=== PATIENT | female | born 1950 | race Caucasian/White ===

== ENCOUNTER → 2016-07-22 | Outpatient (CLI) | payer MEDICARE, OTHER ==
[~2016-07-22] MED LIST: ESTR0.5T PO; ESTR1TAB24 PO; FEXO180T84 PO; GLUC500C2 PO; GLUCOSAMINE PO; MTP25TSR PO; MULT1CAP27 PO; PRED10TA22 PO
--- OUTSIDE RECORDS SUMMARY | 2016-07-22 13:58 | XMS REPORT | Continuity of Care Document ---
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 No 12/07/15 8:07am Organ Donor Yes 12/07/15 8:07am Resuscitation Status Full Code 12/07/15 8:07am Problems Active Problems Medical Problem Onset Date Status Angioedema Unknown Acute Medications Current Home Medications Medication Dose Units Route Directions Days/Qty Instructions Start Date Estradiol 1 Mg 1 Mg Oral Daily 11/05/15 Past Home Medications Medication Directions Ordered Status Estradiol 0.5 Mg Tablet, 0.5 Mg Oral Daily 11/29/09 Discontinued Multivitamins 1 Each Capsule, 1 Each Oral Daily 11/29/09 Discontinued [Glucosamine] , 1 Tab Oral Daily 08/11/11 Discontinued Estradiol 1 Mg Tablet, 1 Mg Oral Daily 08/11/11 Discontinued Glucosamine Sulfate 500 Mg Capsule, 500 Mg Oral Daily 08/11/11 Discontinued Metoprolol Succinate 25 Mg Tab.sr.24h, 25 Mg Oral Daily 08/12/11 Discontinued Prednisone 10 Mg Tab.ds.pk, 10 Mg Oral Daily 11/05/15 Discontinued Fexofenadine Hcl 180 Mg Tablet, 180 Mg Oral Daily 11/05/15 Discontinued Social History Social History Problem Response Recorded Date/Time Alcohol Use Occasionally Uses 11/05/2015 4:00am Recreational Drug Use No 11/05/2015 4:00am Recent Foreign Travel No 12/07/2015 8:13am Recent Infectious Disease Exposure No 12/07/2015 8:13am Smoking Status Never a Smoker 12/07/2015 8:10am Query Response Start Date Stop Date Smoking Status Never a Smoker Hospital Discharge Instructions No hospital discharge instructions. Plan of Care Discharge Date 12/07/15 10:45am Instructions/Education Provided COLONOSCOPY Colonoscopy (DC) Prescriptions See Medication Section Functional Status No functional status results. Allergies, Adverse Reactions, Alerts No known allergies. Immunizations No immunization records. Vital Signs Acute Vital Signs Vital Response Date/Time Temperature (Fahrenheit) 97.2 degrees F (97.6 - 99.5) 12/07/2015 10:45am Temperature (Calculated Celsius) 36.25344 degrees C (36.4 - 37.5) 12/07/2015 10:45am Temperature Source Tympanic 12/07/2015 10:45am Pulse Rate (adult) 62 bpm (60 - 90) 12/07/2015 10:45am Respiratory Rate 18 bpm (12 - 24) 12/07/2015 10:45am O2 Sat by Pulse Oximetry 97 % (88 - 100) 12/07/2015 10:45am Blood Pressure 153/75 mm Hg 12/07/2015 10:45am Pain Numeric Pain Scale 0-No Pain 12/07/2015 10:45am Pain Intensity 3 12/07/2015 9:55am Height (Feet) 5 feet 12/07/2015 8:14am Height (Inches) 6.00 inches 12/07/2015 8:14am Height (Calculated Centimeters) 167.365387 cm 12/07/2015 8:14am Weight (Pounds) 211 pounds 12/07/2015 8:14am Weight (Ounces) 0.0 oz 12/07/2015 8:14am Weight (Calculated Grams) 99904.991 gm 12/07/2015 8:14am Weight (Calculated Kilograms) 95.505370 kilograms 12/07/2015 8:14am Calculated BMI 34.1 12/07/2015 8:14am Results No known relevant diagnostic tests, laboratory data and/or discharge summary. Procedures Procedure Status Date Provider(s) Diagnostic colonoscopy Completed 12/07/15 ISAAK MEDINA MD Encounters Encounter Location Arrival/Admit Date Discharge/Depart Date Attending Provider Departed [facility] 12/07/15 7:40am 10:45am ISAAK MEDINA MD Departed Clinic [facility] 11/27/15 5:42am 11/27/15 10: 39am ISAAK MEDINA MD
--- NOTE | 2016-07-22 18:28 | Diagnostic Imaging Report ---
Digital mammogram bilateral screening. This study was compared to the prior exams of 04/21/2014, 02/18/2012, and 02/28/2010. At this time, there are no current complaints. The current study was also evaluated with a Computer Aided Detection (CAD) system. FINDINGS: There are scattered fibroglandular densities in both breasts which could obscure a lesion. Overall, there does not appear to have been any significant change when compared to the prior exam. No primary or secondary sign of malignancy is noted. IMPRESSION: There is no radiographic evidence for malignancy. ACR BI-RADS Category 2: Benign findings. Result letter will be mailed to the patient. Note: At least 10% of breast cancer is not imaged by mammography. Dictated by: Dictated on workstation # [id number]
== END ==
LOC: RAD 13:53
PROVIDERS: ATTEND Nurse Practitioner
DX: Z12.31 Encounter for screening mammogram for malignant neoplasm of breast (principal)
CPT/HCPCS: 77067

== ENCOUNTER 2017-06-15 08:51 | Emergency (ER) | payer MEDICARE, OTHER ==
[~2017-06-15] VITALS: Ht 167.6 cm; Wt 90.7 kg
--- OUTSIDE RECORDS SUMMARY | 2017-06-15 08:56 | XMS REPORT | Continuity of Care Document ---
Author Author [facility] Organization [facility] Address Unknown Phone Unavailable Allergies Active Description Code Type Severity Reaction Onset Reported/Identified Relationship to Patient Clinical Status Yes No Known Drug Allergies [id number] Drug Allergy Unknown N/A 11/29/2009 Medications There is no data. Problems Date Dx Coded Attending Type Code Diagnosis Diagnosed By 12/06/2009 Ot 618.01 12/06/2009 Ot 618.04 12/06/2009 Ot 788.41 08/12/2011 Ot 427.69 PREMATURE BEATS NEC 08/12/2011 Ot 729.5 PAIN IN LIMB 08/12/2011 Ot 786.50 CHEST PAIN NOS 08/12/2011 Ot 790.21 IMPAIRED FASTING GLUCOSE 08/12/2011 Ot 796.2 ELEV BL PRES W/O HYPERTN 08/12/2011 Ot V17.3 FAM HX- ISCHEM HEART DIS 08/12/2011 Ot V17.49 FAMILY HISTORY OF OTHER CARDIOVASCULAR D 08/12/2011 Ot V85.31 BODY MASS INDEX 31.0-31.9, ADULT 05/18/2014 JANETTE HALE Ot V76.12 08/25/2014 Ot 618.01 08/25/2014 Ot 618.04 08/25/2014 Ot 618.6 08/25/2014 Ot 791.9 08/25/2014 Ot V72.63 08/25/2014 Ot V74.8 11/05/2015 CAROL TATE, ISAAK Butler Ot T78.3XXA ANGIONEUROTIC EDEMA, INITIAL ENCOUNTER 11/27/2015 CAROL TATE, ISAAK Butler Ot Z01.818 ENCOUNTER FOR OTHER PREPROCEDURAL EXAMIN 11/28/2015 ISAAK MEDINA MD Ot Z01.818 ENCOUNTER FOR OTHER PREPROCEDURAL EXAMIN 12/07/2015 ISAAK MEDINA MD Ot Z12.11 ENCOUNTER FOR SCREENING FOR MALIGNANT NE 07/22/2016 Ot V76.12 OT SCREEN MAMMO-MALIGN NEOPLASM OF DIANE 07/22/2016 REZA TATE, JACOBO Adkins Ot 715.31 LOC OSTEOARTH NOS-SHLDER 07/22/2016 REZA TATE, JACOBO Adkins Ot 715.36 LOC OSTEOARTH NOS-L/LEG 07/22/2016 REZA TATE, JACOBO Adkins Ot 717.3 DERANG MED MENISCUS NEC 07/22/2016 REZA TATE, JACOBO Adkins Ot 719.06 JOINT EFFUSION-L/LEG 07/22/2016 REZA TATE, JACOBO Adkins Ot 727.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 07/22/2016 REZA TATE, JACOBO Adkins Ot 727.61 ROTATOR CUFF RUPTURE 07/22/2016 REZA TATE, JACOBO Adkins Ot 738.9 ACQ DEFORMITY NOS 07/22/2016 JACOBO COBB MD Ot 793.7 NOSP (ABN) FINDINGS ON RADIOLOGICAL OT 07/22/2016 JACOBO COBB MD Ot 840.9 SPRAIN SHOULDER/ARM NOS 07/22/2016 JACOBO COBB MD Ot E928.9 ACCIDENT NOS 07/22/2016 JANETTE HALE Ot V76.12 OTH SCREEN MAMMO-MALIGN NEOPLASM OF DIANE 07/23/2016 JANETTE HALE Ot Z12.31 ENCNTR SCREEN MAMMOGRAM FOR MALIGNANT NE 07/23/2016 JANETTE HALE Ot Z12.31 ENCNTR SCREEN MAMMOGRAM FOR MALIGNANT NE 08/12/2016 JANETTE HALE Ot Z12.31 ENCNTR SCREEN MAMMOGRAM FOR MALIGNANT NE Procedures There is no data. Results There is no data. Encounters ACCT No. Visit Date/Time Discharge Status Pt. Type Provider Facility Loc./Unit Complaint [id number] 07/22/2016 13:53:00 07/22/2016 23:59:59 CLS Outpatient JANETTE HALE [facility] RAD SCREENING [id number] 01/04/2016 10:28:00 01/04/2016 23:59:59 CLS Outpatient GHASSAN FERREIRA APRN [facility] QUICK [id number] 12/07/2015 07:40:00 12/07/2015 10:45:00 DIS Outpatient CAROL TATE, ISAAK Butler [facility] SDC SCREENING [id number] 11/27/2015 05:42:00 11/27/2015 10:39:00 DIS Outpatient ISAAK MEDINA MD [facility] PREOP SCREENING [id number] 11/05/2015 03:19:00 11/05/2015 14:10:00 DIS Inpatient ISAAK MEDINA MD [facility] ICU ACUTE ANGIOEDEMA OF TONGUE [id number] 04/21/2014 10:24:00 04/21/2014 23:59:59 CLS Outpatient JANETTE HALE [facility] RAD ROUTINE [id number] 09/23/2013 11:07:00 09/23/2013 23:59:59 CLS Outpatient JACOBO COBB MD [facility] RAD ROTATOR CUFF TEAR, MMT [id number] 02/18/2012 13:26:00 Document Registration [id number] 08/11/2011 10:45:00 Document Registration [id number] 12/04/2009 05:51:00 Document Registration [id number] 11/29/2009 08:11:00 Document Registration
[2017-06-15] MEDS ORDERED: LACTATED RINGERS 1,000 ML IV ONE (09:17)
--- NOTE | 2017-06-15 09:25 | ED Respiratory ---
General Chief Complaint: Abdominal/GI Problems Stated Complaint: N/V/D Nursing Triage Note: PATIENT STATES THAT SHE STARTED HAVING A HEADACHE LAST THURSDAY. SHE SPENT THE REST OF THE WEEK HOME FROM WORK AND OVER THE WEEKEND SHE BEGAN HAVING BODY ACHES, NAUSEA, VOMITING AND DIARRHEA. SHE HAS NOT EATEN IN A FEW DAYS AND IS ONLY DRINKING A LITTLE BIT OF ORANGE JUICE. SHE IS NOT ABLE TO KEEP ANY FOOD DOWN. Source: patient, spouse Exam Limitations: no limitations History of Present Illness Time seen by provider: 09:12 Initial Comments Patient presents to ER by private conveyance with her spouse and a chief complaint that for the past 5 days she's been having a cough a little bit of nasal congestion and running malaise, body aches, tiredness and staying in bed for the past week. Yesterday and today she started having some loose stools and nausea and vomiting. Her says that everybody at his shop is also been expressing the exact same illness but none of them with anywhere near as severe symptoms. She's denies having any fevers or chills but she has had some sweats at night. She did not get her flu vaccine this year. She denies any skin rash or anatomical/structural lung disease, COPD or asthma. She denies diabetes. Patient states she's used Tylenol with minimal relief and Pepto-Bismol. Allergies and Home Medications Allergies Coded Allergies: No Known Drug Allergies (Unverified , 11/29/09) Home Medications Estradiol 1 Mg Tablet, 1 MG PO DAILY, (Reported) Constitutional: No chills, diaphoresis, dizziness, No fever, malaise, weakness EENTM: no symptoms reported, No ear discharge Respiratory: cough, No phlegm, short of breath, No stridor, No wheezing Gastrointestinal: abdominal pain (left flank on coughing), No constipation, diarrhea (loose stools), nausea, vomiting Genitourinary: No discharge, No dysuria, No frequency, No hematuria Musculoskeletal: No back pain Skin: No pruritus, No rash Psychiatric/Neurological: Denies Headache, Denies Numbness, Denies Paresthesia Past Wjomlzq-Nesfua-Xbdlxt Hx Patient Social History Alcohol Use: Occasionally Uses Alcohol Beverage of Choice: Wine (none recently) Recreational Drug Use: No Smoking Status: Never a Smoker 2nd Hand Smoke Exposure: No Recent Foreign Travel: No Contact w/Someone Who Travel: No Recent Infectious Disease Expo: No Surgeries Surgeries: Bladder Surgery, Hysterectomy Respiratory Currently Using CPAP: No Currently Using BIPAP: No Reproductive System Hx Reproductive Disorders: Yes (CYSTOCELE, RECTOCELE) Family Medical History Family Medial History: Diabetes mellitus 19 FATHER FH: CHF (congestive heart failure) 19 FATHER FH: cancer 19 FATHER 19 MOTHER Physical Exam Vital Signs Vital Sign - Last 12Hours 06/15/17 08:56 Temp 96.8 Pulse 53 Resp 18 B/P (MAP) 167/93 (117) Pulse Ox 98 O2 Delivery Room Air Capillary Refill : Less Than 3 Seconds General Appearance: WD/WN, mild distress Eyes: Bilateral Eye Normal Inspection, Bilateral Eye PERRL, Bilateral Eye EOMI HEENT: PERRL/EOMI, TMs normal, other (oropharynx mucosa is dry with black staining of the tongue likely from Pepto-Bismol) Neck: non-tender, supple, normal inspection Respiratory: chest non-tender, lungs clear, normal breath sounds, no respiratory distress, no accessory muscle use Cardiovascular: normal peripheral pulses, regular rate, rhythm, no edema Gastrointestinal: normal bowel sounds, non tender, soft, no organomegaly Extremities: non-tender, normal capillary refill Neurologic/Psychiatric: alert, oriented x 3 Skin: normal color, warm/dry Progress/Results/Core Measures Suspected Sepsis Recent Fever Within 48 Hours: No Infection Criteria Present: Suspected New Infection New/Unexplained Altered Menta: No Sepsis Screen: No Definite Risk Sepsis Diagnosis: SIRS Temperature:96.8 Pulse: 53 Respiratory Rate: 18 Laboratory Tests 06/15/17 09:26: White Blood Count 2.3L Blood Pressure 167 /93 Mean: 117 Laboratory Tests 06/15/17 09:26: Creatinine 0.77, Platelet Count 181, Total Bilirubin 0.4 Results/Orders Lab Results Laboratory Tests Test 06/15/17 09:26 Range/Units White Blood Count 2.3 L 4.3-11.0 10^3/uL Red Blood Count 5.13 4.35-5.85 10^6/uL Hemoglobin 14.9 11.5-16.0 G/DL Hematocrit 45 35-52 % Mean Corpuscular Volume 88 80-99 FL Mean Corpuscular Hemoglobin 29 25-34 PG Mean Corpuscular Hemoglobin Concent 33 32-36 G/DL Red Cell Distribution Width 13.4 10.0-14.5 % Platelet Count 181 130-400 10^3/uL Mean Platelet Volume 11.0 H 7.4-10.4 FL Neutrophils (%) (Auto) 52 42-75 % Lymphocytes (%) (Auto) 37 12-44 % Monocytes (%) (Auto) 10 0-12 % Eosinophils (%) (Auto) 0 0-10 % Basophils (%) (Auto) 1 0-10 % Neutrophils # (Auto) 1.2 L 1.8-7.8 X 10^3 Lymphocytes # (Auto) 0.9 L 1.0-4.0 X 10^3 Monocytes # (Auto) 0.2 0.0-1.0 X 10^3 Eosinophils # (Auto) 0.0 0.0-0.3 10^3/uL Basophils # (Auto) 0.0 0.0-0.1 10^3/uL Sodium Level 137 135-145 MMOL/L Potassium Level 3.7 3.6-5.0 MMOL/L Chloride Level 103 98-107 MMOL/L Carbon Dioxide Level 22 21-32 MMOL/L Anion Gap 12 5-14 MMOL/L Blood Urea Nitrogen 14 7-18 MG/DL Creatinine 0.77 0.60-1.30 MG/DL Estimat Glomerular Filtration Rate > 60 BUN/Creatinine Ratio 18 Glucose Level 136 H 70-105 MG/DL Calcium Level 8.6 8.5-10.1 MG/DL Magnesium Level 2.2 1.8-2.4 MG/DL Total Bilirubin 0.4 0.1-1.0 MG/DL Aspartate Amino Transf (AST/SGOT) 49 H 5-34 U/L Alanine Aminotransferase (ALT/SGPT) 43 0-55 U/L Alkaline Phosphatase 86 40-136 U/L C-Reactive Protein High Sensitivity 1.04 H 0.00-0.50 MG/DL Total Protein 7.5 6.4-8.2 GM/DL Albumin 3.8 3.2-4.5 GM/DL Micro Results Microbiology 06/15/17 Influenza Types A,B Antigen ([facility]) - Final, Complete My Orders Orders - SHOSHANA PUENTE Cbc With Automated Diff (06/15/17 09:17) Comprehensive Metabolic Panel (06/15/17 09:17) Hs C Reactive Protein (06/15/17 09:17) Magnesium (06/15/17 09:17) Influenza A And B Antigens (06/15/17 09:17) Chest Pa/Lat (2 View) (06/15/17 09:17) Saline Lock/Iv-Start (06/15/17 09:17) Lactated Ringers (Lr 1000 Ml Iv Solution (06/15/17 09:17) Ondansetron Injection (Zofran Injectio (06/15/17 09:30) Ketorolac Injection (Toradol Injection) (06/15/17 09:30) Medications Given in ED Current Medications Medications Dose Ordered Sig/Mahamed Route Start Time Stop Time Status Last Admin Dose Admin Ketorolac Tromethamine 15 mg ONCE ONCE IVP 06/15/17 09:30 06/15/17 09:31 DC 06/15/17 09:35 15 MG Lactated Ringer's 1,000 ml @ 0 mls/hr Q0M ONCE IV 06/15/17 09:17 06/15/17 09:20 DC 06/15/17 09:35 0 MLS/HR Ondansetron HCl 4 mg ONCE ONCE IVP 06/15/17 09:30 06/15/17 09:31 DC 06/15/17 09:34 4 MG Vital Signs/I&O Vital Sign - Last 12Hours 06/15/17 08:56 Temp 96.8 Pulse 53 Resp 18 B/P (MAP) 167/93 (117) Pulse Ox 98 O2 Delivery Room Air Capillary Refill : Less Than 3 Seconds Blood Pressure Mean: 117 Progress Note : Time: 09:25 Progress Note Influenza versus viral upper respiratory tract infection versus bronchitis versus pneumonia. We'll get basic labs and chest x-ray. We'll give her some nausea medicine and a liter fluids to start. Diagnostic Imaging Diagonstic Imaging: Xray Plain Films/CT/US/NM/MRI: chest (2v) Comments NAME: ADEBAYO MARIN [facility] REC#: [id number] PT STATUS: REG ER : 1950 PHYSICIAN: SHOSHANA PUENTE MD ADMIT DATE: 06/15/17/ER Draft Date of Exam:06/15/17 CHEST PA/LAT (2 VIEW) EXAMINATION: PA and lateral chest at 1106 hours. INDICATION: Cough. FINDINGS: The heart size is within normal limits and stable when compared to 08/11/2011. The coarse perihilar markings seen on the prior study are again evident and no different. The lungs remain clear. There is still no sign of failure, pneumonia, or pleural effusion to suggest an acute abnormality. The mediastinum is not widened. The osseous structures are intact. As noted on the prior exam, there is deformity of the left clavicle due to prior trauma. Also, in the interval since the prior exam, the patient has undergone a surgical procedure and there is now an orthopedic fixation screw overlying the right humeral head. IMPRESSION: There is no evidence for an acute cardiopulmonary abnormality. Dictated on workstation # [id number] Dict: 06/15/17 1052 Trans: 06/15/17 1059 [id number] Interpreted by: EVE MOY MD Electronically signed by: Reviewed: Reviewed by Me Departure Impression Impression: Primary Impression: Upper respiratory infection, viral Additional Impression: Gastroenteritis and colitis, viral Disposition: HOME, SELF-CARE Condition: Improved Departure-Patient Inst. Decision time for Depature: 11:29 Referrals: ISAAK MEDINA MD (PCP/Family) Primary Care Physician Patient Instructions: Viral Gastroenteritis, Adult (DC) Add. Discharge Instructions: Drink plenty of fluids and use the Zofran 1 tablet every 6 hours as needed to control your nausea. Use Tylenol 1000 mg every 8 hours and ibuprofen 800 mg every 8 hours as needed for body aches, fevers, chills, headaches. Use vaporizer such as Vicks or Mentholatum and middle fires. Get some rest drink lots of fluids and if you have diarrhea eat a bland diet of bananas, rice, applesauce, toast and other high-fiber foods. If you're not improving by or Thursday follow-up with her primary care physician. All discharge instructions reviewed with patient and/or family. Voiced understanding. Scripts Ondansetron (Ondansetron Odt) 4 Mg Tab.rapdis 4 MG PO Q6H Y for NAUSEA/VOMITING-1ST LINE, #14 TAB 0 Refills Prov: SHOSHANA PUENTE Lexy 06/15/17 Work/School Note: Work Release Form Date Seen in the Emergency Department: Jun 15, 2017 Return to Work: Jun 18, 2017 Restrictions: No Restrictions Copy Copies To 1: ISAAK MEDINA MD, TITUS J Jun 15, 2017 09:25
[2017-06-15] MEDS ORDERED: KETOROLAC 30 MG/ML VIAL IVP ONE (09:30)
[2017-06-15] MEDS ORDERED: ONDANSETRON 4 MG/2 ML (SDV) Z0FRAN IVP ONE (09:30)
[2017-06-15 09:34] LABS: BASOPHILS % (AUTO) 1 % (0-10); EOSINOPHILS % (AUTO) 0 % (0-10); HEMATOCRIT 45 % (35-52); HEMOGLOBIN 14.9 G/DL (11.5-16.0); LYMPHOCYTES # (AUTO) 0.9 X 10^3 (1.0-4.0); LYMPHOCYTES % (AUTO) 37 % (12-44); MEAN CORPUSCULAR HEMOGLOBIN 29 PG (25-34); MEAN CORPUSCULAR HGB CONC 33 G/DL (32-36); MEAN CORPUSCULAR VOLUME 88 FL (80-99); MONOCYTES # (AUTO) 0.2 X 10^3 (0.0-1.0); MONOCYTES % (AUTO) 10 % (0-12); NEUTROPHILS # (AUTO) 1.2 X 10^3 (1.8-7.8); NEUTROPHILS % (AUTO) 52 % (42-75); PLATELET COUNT 181 10^3/uL (130-400); RED BLOOD COUNT 5.13 10^6/uL (4.35-5.85); RED CELL DISTRIBUTION WIDTH 13.4 % (10.0-14.5); WHITE BLOOD COUNT 2.3 10^3/uL (4.3-11.0)
[2017-06-15 10:06] LABS: ALANINE AMINOTRANSFERASE 43 U/L (0-55); ALBUMIN 3.8 GM/DL (3.2-4.5); ALKALINE PHOSPHATASE 86 U/L (40-136); BILIRUBIN,TOTAL 0.4 MG/DL (0.1-1.0); BUN/CREATININE RATIO 18; CALCIUM 8.6 MG/DL (8.5-10.1); CARBON DIOXIDE 22 MMOL/L (21-32); CHLORIDE 103 MMOL/L (98-107); CREATININE SERUM 0.77 MG/DL (0.60-1.30); GFR ESTIMATED > 60; GLUCOSE 136 MG/DL (70-105); MAGNESIUM 2.2 MG/DL (1.8-2.4); POTASSIUM 3.7 MMOL/L (3.6-5.0); SODIUM 137 MMOL/L (135-145); TOTAL PROTEIN 7.5 GM/DL (6.4-8.2)
--- NOTE | 2017-06-15 10:59 | Diagnostic Imaging Report ---
EXAMINATION: PA and lateral chest at 1106 hours. INDICATION: Cough. FINDINGS: The heart size is within normal limits and stable when compared to 08/11/2011. The coarse perihilar markings seen on the prior study are again evident and no different. The lungs remain clear. There is still no sign of failure, pneumonia, or pleural effusion to suggest an acute abnormality. The mediastinum is not widened. The osseous structures are intact. As noted on the prior exam, there is deformity of the left clavicle due to prior trauma. Also, in the interval since the prior exam, the patient has undergone a surgical procedure and there is now an orthopedic fixation screw overlying the right humeral head. IMPRESSION: There is no evidence for an acute cardiopulmonary abnormality. Dictated by: Dictated on workstation # [id number]
[2017-06-15] MEDS ORDERED: ONDA4TAB11 PO (11:32)
[2017-06-15 11:37] VITALS: BP 167/93
== END 2017-06-15 11:10 | disposition home or self-care (01) ==
LOC: EDUNIT# 08:51 → ER 08:52
DX: J06.9 Acute upper respiratory infection, unspecified (principal); A08.4 Viral intestinal infection, unspecified; Z90.710 Acquired absence of both cervix and uterus; Z82.49 Family history of ischemic heart disease and other diseases of the circulatory system
CPT/HCPCS: 36415; 71046; 80053; 83735; 85025; 86141; 87804; 96361; 96374; 96375

== ENCOUNTER → 2018-03-30 | Outpatient (CLI) | payer MEDICARE, OTHER ==
[~2018-03-30] MED LIST changes: +ONDA4TAB11 PO
--- NOTE | 2018-03-30 12:47 | Diagnostic Imaging Report ---
INDICATION: Routine screening. COMPARISON: 07/22/2016 and 04/21/2014. TECHNIQUE: 2D and 3D bilateral screening mammography was performed with CAD. FINDINGS: Scattered fibroglandular densities are identified bilaterally. The parenchymal pattern appears stable. Intraparenchymal lymph nodes in the upper and outer aspects of both breasts appear stable. No new mass or malignant appearing microcalcifications are seen. The axillae are unremarkable. IMPRESSION: No mammographic features suspicious for malignancy are identified. ACR BI-RADS Category 2: Benign findings. Result letter will be mailed to the patient. Note: At least 10% of breast cancer is not imaged by mammography. Dictated by: Dictated on workstation # [id number]
== END ==
LOC: RAD 08:33
PROVIDERS: ATTEND Internal Medicine
DX: Z12.31 Encounter for screening mammogram for malignant neoplasm of breast (principal)
CPT/HCPCS: 77067

== ENCOUNTER → 2019-04-05 | Outpatient (CLI) | payer MEDICARE, OTHER ==
--- NOTE | 2019-04-05 12:02 | Diagnostic Imaging Report ---
INDICATION: Screening TECHNIQUE: The current study was also evaluated with a Computer Aided Detection (CAD) system. 3D Tomographic imaging was also performed. 3D tomosynthesis was performed and reviewed. INDICATION: Screening. COMPARISON: 03/30/2018, 07/23/2016, and 04/21/2014. FINDINGS: There are scattered fibroglandular densities bilaterally. There are a few benign type calcifications. There is no dominant mass, spiculated lesion, or suspicious calcification identified. The skin, nipples, and axillae are unremarkable. IMPRESSION: Benign findings. ACR BI-RADS Category 2: Benign findings. Result letter will be mailed to the patient. Note: At least 10% of breast cancer is not imaged by mammography. Dictated by: Dictated on workstation # [id number]
== END ==
LOC: RAD 11:18
PROVIDERS: ATTEND Internal Medicine
DX: Z12.31 Encounter for screening mammogram for malignant neoplasm of breast (principal)
CPT/HCPCS: 77067

== ENCOUNTER → 2019-11-02 | Outpatient (CLI) | payer MEDICARE, OTHER ==
--- NOTE | 2019-11-02 18:09 | Diagnostic Imaging Report ---
EXAMINATION: Left lower extremity MRI from 11/02/2019. TECHNIQUE: Multiplanar, multisequence non contrast-enhanced MRI of the left lower extremity was accomplished. INDICATION: Patient fell in September, injury to the leg. FINDINGS: There is edema throughout the posterior lateral tibial plateau with focal edema noted within the mid aspect of the lateral femoral condyle as well. Bone bruise pattern is consistent with a recent ACL injury. The remaining osseous structures demonstrate no acute abnormalities. The ACL is diffusely ill-defined and contains edema. There is at least a partial tear along its proximal fibers. Complete discontinuity is not appreciated. The PCL is intact. The proximal MCL demonstrates diffuse heterogeneity and is ill-defined with associated edema suggesting at least a type III sprain or partial tear. No retraction. This is most marked along the deep fibers. The lateral collateral ligament proper demonstrates mild edema as well but without discontinuity. The iliotibial band and biceps femoris tendon appear intact. Edema surrounding the lateral collateral ligament complex is likely reactive. There is mild edema within the fibular head which could be contusion. The popliteus tendon is intact. The lateral meniscus intact. The medial meniscus contains some heterogeneous signal within the posterior horn consistent with myxoid degeneration. Heterogeneity of the soft tissues immediately posterior to the posterior horn could be due to a tear at the meniscocapsular junction. There is heterogeneity and loss of cartilage in the medial and lateral joint spaces moderate in nature. The patellofemoral joint space demonstrates moderate thinning and irregularity of its overlying cartilage is well. There is a small joint effusion. IMPRESSION: 1. Partial tear suspected within the proximal ACL with secondary bone bruise pattern as above 2. At least a type III sprain or tear or partial tear of the proximal MCL. 3. Sprain of the proximal lateral collateral ligament proper with surrounding edema. 4. Suspected meniscal capsular separation posterior medial knee. Lateral meniscus intact. 5. Tricompartmental degenerative disease and other findings as above. Dictated by: Dictated on workstation # [id number]
== END ==
LOC: RAD 14:28
PROVIDERS: ATTEND Orthopaedic Surgery
DX: M23.232 Derangement of other medial meniscus due to old tear or injury, left knee (principal); S83.422A Sprain of lateral collateral ligament of left knee, initial encounter; M17.12 Unilateral primary osteoarthritis, left knee
CPT/HCPCS: 73721

== ENCOUNTER → 2020-09-10 | Outpatient (CLI) | payer MEDICARE, OTHER ==
--- NOTE | 2020-09-10 12:46 | Diagnostic Imaging Report ---
HISTORY: Cough, new onset fatigue. COMPARISON: 06/15/2017. TECHNIQUE: Two views of the chest. FINDINGS: The lung volumes are mildly large. There is increased airspace opacity in the right middle lobe. No pleural effusion or pneumothorax is seen. The cardiac silhouette is normal in size. There is deformity from an old left clavicular fracture. A suture anchor is seen in the right humeral head. IMPRESSION: Airspace opacity in the right middle lobe which may be due to atelectasis or infiltrate. Dictated by: Dictated on workstation # [id number]
== END ==
LOC: RAD 11:54
PROVIDERS: ATTEND Nurse Practitioner Family
DX: R05 Cough (principal); R53.83 Other fatigue
CPT/HCPCS: 71046

== ENCOUNTER → 2020-09-18 | Outpatient (CLI) | payer MEDICARE, OTHER ==
[~2020-09-18] MED LIST changes: +HOLD METFORMIN - RECEIVED CONTRAST 20 ML VIAL IV SCH; +IOHEXOL 350 MG/ML 100 ML (OMNIPAQUE 350) VIAL IV ONE; +NS 100 ML (IVPB) BAG IV ONE
[2020-09-18 11:47] LABS: CREATININE SERUM 0.74 MG/DL (0.60-1.30); GFR ESTIMATED > 60
[2020-09-18 11:48] LABS: BUN/CREATININE RATIO 16
--- NOTE | 2020-09-18 12:56 | Diagnostic Imaging Report ---
CT CHEST W TECHNIQUE: Multiple contiguous axial images were obtained through the chest with the use of intravenous contrast. All CT scans use one or more of the following dose optimizing techniques: automated exposure control, MA and/or KvP adjustment based on a patient size and exam type, or iterative reconstruction. INDICATION: Cough and weight loss. COMPARISON: Chest radiograph of 09/10/2020 FINDINGS: Lungs and airway: Multifocal peripheral consolidations and groundglass opacities involve all 5 lobes. Relative paucity and central consolidations are present. No honeycombing or bronchiectasis. No pulmonary cysts. Pleura: No pleural effusion or pneumothorax. Heart and mediastinum: No supraclavicular or axillary lymphadenopathy. A few enlarged mediastinal lymph nodes are present, with a sales development representative subcarinal lymph node measuring 1.3 cm. Enlarged right hilar lymph node measures 1.1 cm. Heart is normal in size without pericardial effusion. No central pulmonary emboli. Normal caliber thoracic aorta. Upper abdomen: There are a few scattered benign cysts within the liver. No adrenal mass. Musculoskeletal: No lytic or blastic skeletal lesions. IMPRESSION: 1. Bilateral multifocal pulmonary consolidations are predominantly peripheral in nature. Differential consideration will vary depending on the chronicity of these opacities. In the acute setting, infectious pneumonia such as Covid-19 could give this appearance. In a more subacute to chronic setting, eosinophilic pneumonia or organizing pneumonia should be considered. Recommend follow-up CT chest without contrast in 6-8 weeks after appropriate medical management to assess for improvement. 2. Mildly enlarged mediastinal hilar lymph nodes are likely reactive in nature due to pulmonary pathology. Dictated by: Dictated on workstation # [id number]
== END ==
LOC: RAD 10:30
PROVIDERS: ATTEND Nurse Practitioner Family
DX: R59.0 Localized enlarged lymph nodes (principal); R05 Cough; R06.00 Dyspnea, unspecified; R63.4 Abnormal weight loss
CPT/HCPCS: 36415; 71260; 82565; 84520

== ENCOUNTER → 2020-11-22 | Outpatient (CLI) | payer MEDICARE, OTHER ==
[~2020-11-22] MED LIST changes: -HOLD METFORMIN - RECEIVED CONTRAST 20 ML VIAL IV SCH; -IOHEXOL 350 MG/ML 100 ML (OMNIPAQUE 350) VIAL IV ONE; -NS 100 ML (IVPB) BAG IV ONE
--- NOTE | 2020-11-22 18:13 | Diagnostic Imaging Report ---
CT CHEST WO TECHNIQUE: Multiple contiguous axial images were obtained through the chest without the use of intravenous contrast. All CT scans use one or more of the following dose optimizing techniques: automated exposure control, MA and/or KvP adjustment based on a patient size and exam type, or iterative reconstruction. INDICATION: Cough. Recent pneumonia. COMPARISON: CT chest of 09/18/2020. FINDINGS: Lungs and airway: No endoluminal nodule within the trachea. Previously noted multifocal subpleural consolidations have resolved. However, there do remain multiple areas of subpleural fine reticulation and groundglass attenuation. A 4 mm left upper lobe pulmonary nodule is present (image 73, series 3). Pleura: No pleural effusion or pneumothorax. Heart and mediastinum: No supraclavicular or axillary lymphadenopathy. No mediastinal or hilar lymphadenopathy. Stable cardiomegaly. No pericardial effusion. Upper abdomen: Scattered hypodensities throughout the liver are unchanged and favor cysts. No acute abnormality in the upper abdomen. Musculoskeletal: No worrisome focal osseous lesions. IMPRESSION: 1. Resolution of multifocal pneumonia. There do remain subpleural reticulations that may be due to postinflammatory fibrosis or residual pneumonitis. Advise follow-up CT chest without contrast in six months to reassess if these changes have resolved or persist. Dictated by: Dictated on workstation # [id number]
== END ==
LOC: RAD 13:45
PROVIDERS: ATTEND Nurse Practitioner Family
DX: J18.9 Pneumonia, unspecified organism (principal)
CPT/HCPCS: 71250

== ENCOUNTER → 2021-05-28 | Outpatient (CLI) | payer MEDICARE, OTHER ==
--- NOTE | 2021-05-28 12:43 | Diagnostic Imaging Report ---
INDICATION: Routine screening. COMPARISON: 04/05/2019 and 03/30/2018. TECHNIQUE: 2D and 3D bilateral screening mammography was performed with CAD. FINDINGS: Scattered fibroglandular densities are identified bilaterally. An intraperitoneal lymph node in the outer right breast is stable. No spiculated mass or malignant-appearing microcalcifications are seen. The axillae are unremarkable. IMPRESSION: No mammographic features suspicious for malignancy are identified. ACR BI-RADS Category 2: Benign findings. Result letter will be mailed to the patient. Note: At least 10% of breast cancer is not imaged by mammography. Dictated by: Dictated on workstation # [id number]
--- NOTE | 2021-05-28 18:14 | Diagnostic Imaging Report ---
EXAMINATION: CT chest without contrast. TECHNIQUE: Multiple contiguous axial images were obtained through the chest without the use of intravenous contrast. All CT scans use one or more of the following dose optimizing techniques: automated exposure control, MA and/or KvP adjustment based on patient size and exam type or iterative reconstruction. HISTORY: Lymphadenopathy. COMPARISON: 11/22/2020. FINDINGS: There are [id number] reticulations. No groundglass or consolidation. No pleural effusion. No pneumothorax. No suspicious nodules. There is no axillary or supraclavicular lymphadenopathy. There is no mediastinal lymphadenopathy. Heart size is normal. There are mild coronary artery calcifications. No pericardial effusion. Aorta is normal in caliber. Limited views of the upper abdomen show cysts in the liver. There are no suspicious osseous lesions. IMPRESSION: 1. [id number] reticulations consistent with fibrosis. Dictated by: Dictated on workstation # [id number]
== END ==
LOC: RAD 11:15
PROVIDERS: ATTEND Nurse Practitioner Family
DX: Z12.31 Encounter for screening mammogram for malignant neoplasm of breast (principal); J64 Unspecified pneumoconiosis; R59.0 Localized enlarged lymph nodes
CPT/HCPCS: 71250; 77063; 77067

== ENCOUNTER → 2022-04-03 | Outpatient (CLI) | payer MEDICARE, OTHER ==
[~2022-04-03] MED LIST changes: +CATHETER FLUSH 10 ML SYR IV PRN; +HOLD METFORMIN - RECEIVED CONTRAST 20 ML VIAL IV SCH; +IOHEXOL 350 MG/ML 100 ML (OMNIPAQUE 350) VIAL IV ONE; +NS 100 ML (IVPB) BAG IV ONE
[2022-04-03 09:25] LABS: CREATININE SERUM 0.75 MG/DL (0.60-1.30)
--- NOTE | 2022-04-03 10:44 | Diagnostic Imaging Report ---
PROCEDURE: CT abdomen and pelvis with contrast. TECHNIQUE: Multiple contiguous axial images were obtained through the abdomen and pelvis after administration of intravenous contrast. Auto Exposure Controls were utilized during the CT exam to meet ALARA standards for radiation dose reduction. All CT scans use one or more of the following dose optimizing techniques: automated exposure control, MA and/or KvP adjustment based on patient size and exam type or iterative reconstruction. INDICATION: Left lower quadrant pain. COMPARISON: No prior studies are available for comparison. FINDINGS: The lung bases are clear. Liver contains circumscribed low-attenuation lesions, suggestive of cysts. The gallbladder is unremarkable. There is no biliary ductal dilatation. Pancreas and spleen are unremarkable. No adrenal mass is detected. Kidneys are unremarkable. There is no hydronephrosis. Aorta is normal in caliber but shows diffuse atherosclerotic calcifications. The small and large bowel loops are normal in caliber. No obstruction is seen. There are diverticula involving the descending and sigmoid colon but no evidence of acute diverticulitis. There is no free fluid or fluid collection identified. The bladder is unremarkable. Uterus appears to be surgically absent. IMPRESSION: 1. Uncomplicated diverticulosis. 2. Hepatic cysts. 3. No acute feature detected. Dictated by: Dictated on workstation # [id number]
== END ==
LOC: RAD 08:52
PROVIDERS: ATTEND Nurse Practitioner
DX: K57.30 Diverticulosis of large intestine without perforation or abscess without bleeding (principal); K76.89 Other specified diseases of liver
CPT/HCPCS: 36415; 74177; 82565; 84520